=== PATIENT | male | born 1955 | race Caucasian/White ===

== ENCOUNTER → 2020-11-14 15:36 | Outpatient (BNVA) | payer OTHER, SELFPAY | PROVIDERS: Family Provider Family Medicine; PCP Specialist; Visit Provider Podiatrist Foot & Ankle Surgery | DX: M72.2 Plantar fascial fibromatosis (principal) | CPT/HCPCS: 73630 ==

== ENCOUNTER 2023-10-16 14:51 | Outpatient (CLI) | payer MEDICARE, OTHER, SELFPAY ==
--- NOTE | 2023-10-16 14:59 | CT_ITS ---
WS: [id number] CT ABDOMEN PELVIS TECHNIQUE: Noncontrast CT of the abdomen and pelvis with coronal and sagittal reformatted images. CLINICAL INFORMATION: ABDOMINAL PAIN/URINARY URGENCY COMPARISON: None. DLP: 715.[address] scans at [facility] use at least one of these dose optimization techniques: automated e xposure control; mA and/or kV adjustment per patient size (includes targeted exams where dose is matc hed to clinical indication); or iterative reconstruction. FINDINGS: Markedly enlarged prostate with indentation on the bladder. Prostate measures approximately 5.6 x 5.0 x 5.7 cm suspicious for neoplasia. Evidence of bladder outlet obstruction. Diffuse bladder wall thic kening. Diffuse thickening of the seminal vesicles bilaterally. Pelvic phleboliths. Tiny gallstone in the gallbladder. Adrenal glands are normal. No obstructing renal or ureteral calcul i. No hydronephrosis in either kidney. Perinephric edema can be seen with renal insufficiency. Small esophageal hiatal hernia. Noncontrast liver appears normal. Normal noncontrast spleen. Noncontr ast pancreas appears normal. Normal caliber abdominal aorta. Tiny fat-containing umbilical hernia. Lung bases are well aerated. Normal sigmoid colon. IMPRESSION: 1. Markedly enlarged nodular prostate with enlarged seminal vesicles. Findings suspicious for neopla elen. Recommend correlation PSA. 2. Diffuse bladder wall thickening with evidence of bladder outlet obstruction. 3. Bilateral perinephric edema. No hydronephrosis. Findings can be seen with renal insufficiency. 4. Tiny gallstone. 5. Small esophageal hiatal hernia.
== END 2023-10-16 14:52 | disposition home or self-care (01) ==
PROVIDERS: Family Provider Family Medicine; PCP Family Medicine; Visit Provider Nurse Practitioner Family
DX: R10.9 Unspecified abdominal pain (principal); N40.3 Nodular prostate with lower urinary tract symptoms; R39.15 Urgency of urination; N32.0 Bladder-neck obstruction; K44.9 Diaphragmatic hernia without obstruction or gangrene; R60.0 Localized edema
CPT/HCPCS: 74176

== ENCOUNTER 2024-01-05 14:52 | Outpatient (CLI) | payer MEDICARE, OTHER, SELFPAY ==
--- NOTE | 2024-01-05 14:59 | XRR_ITS ---
PROCEDURE INFORMATION: Exam: XR Chest Exam date and time: 01/05/2024 3:08 PM Age: 68 years old Clinical indication: Wheezing TECHNIQUE: Imaging protocol: Radiologic exam of the chest. Views: 2 views. COMPARISON: CT abdomen pelvis con [id number] 10/16/2023 3:08 PM FINDINGS: Lungs: Small areas of atelectasis and/or pneumonitis in the right mid and lower lung. Otherwise, unremarkable. Pleural spaces: Unremarkable. No pleural effusion. No pneumothorax. Heart/Mediastinum: Unremarkable. No cardiomegaly. Bones/joints: Mild scoliosis with mild multilevel spondylosis. XR/XR chest 2V* [id number] IMPRESSION: Small areas of atelectasis and/or pneumonitis in the right mid and lower lung.
== END 2024-01-05 14:53 | disposition home or self-care (01) ==
LOC: RAD 14:55
PROVIDERS: Family Provider Family Medicine; PCP Family Medicine; Visit Provider Internal Medicine
DX: J98.4 Other disorders of lung (principal); J98.11 Atelectasis
CPT/HCPCS: 71046